=== PATIENT | female | born 1950 | race Caucasian/White ===

== ENCOUNTER 2019-03-23 04:49 | Emergency (ER) | payer MEDICARE, MEDICAID ==
[~2019-03-23] VITALS: Ht 165.1 cm; Wt 82.0 kg
[2019-03-23 05:01] VITALS: BP 122/88
== END 2019-03-23 07:45 | disposition left against medical advice (07) ==
LOC: ER 04:49
DX: Z53.21 Procedure and treatment not carried out due to patient leaving prior to being seen by health care provider (principal)